=== PATIENT | male | born 1950 | race African-American/Black ===

== ENCOUNTER 2018-11-29 17:34 | Inpatient (IN) | payer OTHER, MEDICARE ==
[~2018-11-29] VITALS: Ht 165.1 cm; Wt 81.6 kg
[~2018-11-29 17:34] MED LIST: PIPERACILLIN/TAZO 3.375 GM in NS 50 ML IV SCH
[2018-11-29 17:35] VITALS: BP_SYST 104
--- NOTE | 2018-11-29 17:35 | NUR ---
Placed in room 4 . Placed on strategic business development, blood pressure machine and pulse oximeter. To gown for exam. Side rails up. Report given to Johnny.
--- NOTE | 2018-11-29 17:35 | NUR ---
Patient's pulse oximeter reading is 78% on room air, patient placed on oxygen mask at 10 lpm. Patient denies pain/sob
--- NOTE | 2018-11-29 17:40 | NUR ---
Pt presents to ER brought in by ALS for ALOC. Per pts , pts last known well time was yesterday. Otherwise, patient denies fever, chills, nausea, vomiting, diarrhea, chest pain, abdominal pain or any other complaints.
--- NOTE | 2018-11-29 17:50 | NUR ---
ER at bedside examining patient.
--- NOTE | 2018-11-29 18:47 | NUR ---
Laboratory at bedside.
[2018-11-29 19:18] LABS: HEMATOCRIT 46.7 % (36-54); MEAN CORPUSCULAR HEMOGLOBIN 33 pg (27-31); MEAN CORPUSCULAR HGB CONC 34 % (32-36); MEAN CORPUSCULAR VOLUME 97 fL (79.0-98.0); RED BLOOD CELL COUNT(AUTO) 4.84 MIL/uL (4.2-6.2); RED CELL DISTRIBUTION WIDTH 15.1 % (9.0-15.0); WHITE BLOOD COUNT (AUTO) 5.8 K/uL (4.8-10.8)
[2018-11-29 19:24] LABS: CALCIUM 9.1 mg/dL (8.4-11.0); CREATININE 0.86 mg/dL (0.55-1.30); POTASSIUM 3.8 mmol/L (3.5-5.1)
[2018-11-29 19:26] LABS: INR 1.2 (0.80-1.20); PROTHROMBIN TIME 12.7 SECS (9.5-12.5)
[2018-11-29 19:29] LABS: ALBUMIN 2.7 g/dL (3.4-4.8); TOTAL BILIRUBIN 1.9 mg/dL (0.0-1.0)
[2018-11-29 19:32] LABS: PLATELET COUNT (AUTO) 43 K/uL (130-430)
--- NOTE | 2018-11-29 19:35 | NUR ---
Dr. Lynch at bedside speaking with pt and pt's family.
[2018-11-29 19:49] LABS: BAND % (MANUAL) 8 % (0-6)
[2018-11-29 19:50] LABS: ATYPICAL LYMPHOCYTES % 0 % (0-0); BASOPHILS % (MANUAL) 0 % (0-2); EOSINOPHILS % (MANUAL) 0 % (0-7); LYMPHOCYTES % (MANUAL) 25 % (20-46); METAMYELOCYTES % 2 % (0-0); MONOCYTES % (MANUAL) 6 % (0-11); MYELOCYTES % 1 % (0-0)
[2018-11-29] MEDS ORDERED: DEPAK250 PO (19:51)
[2018-11-29] MEDS ORDERED: FURO-150 PO (19:51)
[2018-11-29] MEDS ORDERED: LACT10SO6 PO (19:51)
[2018-11-29] MEDS ORDERED: SIMV20TA2 PO (19:51)
[2018-11-29] MEDS ORDERED: TAMS0.4C96 PO (19:51)
[2018-11-29] MEDS ORDERED: PRED20TA PO (19:51)
[2018-11-29] MEDS ORDERED: HYDR-3917 PO (19:51)
[2018-11-29] MEDS ORDERED: PRO40 PO (19:51)
--- NOTE | 2018-11-29 19:59 | NUR ---
Pt is resting in bed, no acute distress noted at this time. Pt placed on urinal prior to catheterization at pt's wifes request.
[2018-11-29] MEDS ORDERED: PIPERACILLIN/TAZO 3.375 GM in NS 50 ML IV ONE (20:45)
--- NOTE | 2018-11-29 20:59 | NUR ---
Pt is resting in bed, no acute distress noted at this time. Will continue to monitor.
[2018-11-29] MEDS ORDERED: NACL 0.9% 3,000 ML IV ONE (21:00)
--- NOTE | 2018-11-29 21:00 | NUR ---
Pt placed on NRB @ 12LPM ER Dr. Lynch ordered.
[2018-11-29] MEDS ORDERED: PIPERACILLIN/TAZOBACTAM 3.375 GM/VIAL (ZOSYN) IV ONE (21:01)
--- NOTE | 2018-11-29 21:02 | NUR ---
IV Fluids was administered at 2102. IV site is a 22G on the RT wrist. IV is positional and fluids were ran at 250ml/hr per ER MD ordered. Will continue to monitor.
[2018-11-29 21:54] LABS: BILIRUBIN,URINE 1+ (NEGATIVE); BLOOD, URINE 3+ (NEGATIVE); CLARITY/URINE CLOUDY (CLEAR); COLOR,URINE AMBER (YELLOW); GLUCOSE,URINE NEGATIVE (NEGATIVE); KETONES,URINE TRACE (NEGATIVE); LEUKOCYTE ESTERASE ,URINE NEGATIVE (NEGATIVE); NITRITE, URINE NEGATIVE (NEGATIVE); PH,URINE 7.5 (5.0-8.0); PROTEIN URINE TRACE (NEGATIVE)
[2018-11-29 21:55] LABS: UROBILINOGEN,URINE >=8 (0.2-1.0)
[2018-11-29] MEDS ORDERED: POTASSIUM CHLORIDE 20 MEQ TAB.PRT.SR PO PRN (22:00)
[2018-11-29] MEDS ORDERED: MUPIROCIN 2% TOPICAL OINTMENT 22 GM NS PRN (22:00)
[2018-11-29] MEDS ORDERED: ACETAMINOPHEN 325 MG TABLET PO PRN (22:00)
[2018-11-29] MEDS ORDERED: DOCUSATE SODIUM 100 MG CAPSULE PO PRN (22:00)
[2018-11-29] MEDS ORDERED: ZOLPIDEM TARTRATE 5 MG TABLET PO PRN (22:00)
[2018-11-29] MEDS ORDERED: MORPHINE 4 MG/ML INJ. SYRINGE IVP PRN ×2 (22:00)
[2018-11-29] MEDS ORDERED: LORazepam 2 MG/ML VIAL IVP PRN (22:00)
[2018-11-29] MEDS ORDERED: ONDANSETRON HCL 4 MG/2 ML VIAL IVP PRN (22:00)
[2018-11-29 22:06] LABS: BACTERIA,URINE FEW /HPF (None Seen); CALCIUM OXALATE CRYSTALS,UR 0-10 /HPF (None Seen); MUCUS,URINE None Seen /LPF (None Seen); RBC,URINE >100 /HPF (0-3); URINE AMORPHOUS PHOSPHATES 3+ /HPF (None Seen); WBC,URINE 0-3 /HPF (0-3)
--- NOTE | 2018-11-29 22:20 | NUR ---
ICU called the ER notifying pharmacy operations specialist nurse has arrived and is ready to recieve the patient.
[2018-11-29 22:30] VITALS: BP_SYST 154
[2018-11-29] MEDS ORDERED: MAGNESIUM SULFATE 50 ML IV PRN (22:30)
--- NOTE | 2018-11-29 22:30 | NUR ---
Pt is ready to transfer patient only recieved 300 mls at this time. IV is position and is the reason for the discrepancy. Pt's vital signs are stable, lactic acid is less than 4 at this time. ICU charge and primary nurse has been notified.
--- NOTE | 2018-11-29 22:30 | NUR ---
ADMISSION Received pt from ED to ICU bed 7 w/ RN. Report received from Daryl NICHOLS using SBAR format. No signs of acute distress or discomfort noted at this time. Pt was accompanied by his . Upon arrival to room, pt hooked up to monitor and O2. Pt on non-rebreather mask w/ 12L O2, satting well @ 99%. Other VSS at this time. Pt has a right wrist IV 22g infusing NS at this time. Lung sounds clear bilateral anterior upper lobes. Received pt history from and pt at beside. Bed is locked and in lowest position, call light w/in reach, will continue to monitor. Addendum: 11/30/18 at 0047 by Tal Skaggs RN CHG bath given to pt at this time. Pt tolerated well.
--- NOTE | 2018-11-29 22:30 | NUR ---
Patient will be admitted to care of Dr. Harley . Admitted to ICU unit. Will go to room ICU 7. Summary report printed. Report will be given at bedside.
--- NOTE | 2018-11-29 22:40 | NUR ---
Jeannette post in ED - 11/30/18 at 0352 by [email or web address] ICU called the ER notifying environmental protection inspector nurse has arrived and is ready to recieve the patient.
[2018-11-29 22:44] VITALS: BP_SYST 115
--- NOTE | 2018-11-29 22:50 | NUR ---
Note sincere in ED - 11/30/18 at 0350 by [email or web address] Pt is ready to transfer patient only recieved 300mls at this time. IV is position and is the reason for the discrepancy. Pt's vital signs are stable, lactic acid is less than 4 at this time. ICU charge and primary nurse has been notified.
--- NOTE | 2018-11-29 22:55 | NUR ---
Note sincere in ED - 11/30/18 at 0351 by [email or web address] Patient will be admitted to care of . Admitted to ICU unit. Will go to room ICU 7. Summary report printed. Report will be given at bedside.
[2018-11-29 23:00] VITALS: BP_SYST 115
--- NOTE | 2018-11-29 23:00 | NUR ---
RT CHANGE Pt O2 changed from non-rebreather to oximizer 8L per RT. Pt tolerating well w/ O2 sats @ 99%. Will continue to monitor.
[2018-11-29] MEDS: IPRATROPIUM/ALBUTEROL SULFATE 3 ML AMPUL.NEB (DUONEB) INH SCH (23:01)
--- NOTE | 2018-11-29 23:25 | NUR ---
CONSULT CALLED @23:17 SPOKE WITH DONNA CARLSON IS AWARE OF THE CONSULT
[2018-11-29] MEDS ORDERED: AZITHROMYCIN 500 MG in NS 250 ML IV ONE (23:30)
[2018-11-29] MEDS ORDERED: COMMUNICATION ORDER XX ONE (23:30)
[2018-11-29 23:36] VITALS: BP_SYST 115
--- NOTE | 2018-11-29 23:50 | NUR ---
Iqbal Catheter insertion per MD order. Pt tolerated well. Iqbal Cath draining yellow urine to gravity. Will continue to monitor.
[2018-11-30] VITALS (14 sets, daily range): BP systolic 106–127
[2018-11-30] MEDS ORDERED: PIPERACILLIN/TAZOBACTAM 3.375 GM/VIAL (ZOSYN) IV ONE (00:28)
[2018-11-30] MEDS ORDERED: AZITHROMYCIN 500 MG/VIAL (ZITHROMAX) IV ONE (00:28)
--- NOTE | 2018-11-30 01:20 | NUR ---
RN ROUNDS Pt in bed w/ eyes closed resting comfortably, w/ family at bedside. No signs of acute distress or discomfort noted. VSS w/ SR seen on the monitor. Pt still on Oximizer 8L, tolerating well w/ O2 sats @ 95% and even and unlabored breathing. Pt receiving NS fluid at this time. Iqbal cath noted draining urine to gravity. Bed is locked and in lowest position, call light w/in reach. Will continue to monitor.
[2018-11-30] MEDS: NACL 0.9% 1,000 ML IV SCH ×2 (01:32→11:12)
[2018-11-30] MEDS: PIPERACILLIN/TAZO 3.375 GM in NS 50 ML IV SCH ×3 (02:53→15:42)
[2018-11-30] MEDS: IPRATROPIUM/ALBUTEROL SULFATE 3 ML AMPUL.NEB (DUONEB) INH SCH ×4 (03:46→14:00)
--- NOTE | 2018-11-30 03:50 | NUR ---
RN ROUNDS Pt in bed w/ eyes open resting comfortably. Pt's family still at bedside. RT at bedside giving pt breathing tx. Pt tolerating tx well w/ O2 sats @ 98%. No signs of acute distress or discomfort noted. VSS w/ SR seen on the monitor. Iqbal cath draining urine to gravity. Pt doesn't verbalize needs at this time. Bilateral SCD's noted to pt's lower extremities. Bed is locked and in lowest position, call light w/in reach, padded side rails, will continue to monitor.
--- NOTE | 2018-11-30 04:05 | NUR ---
RT CHANGE Pt's O2 changed from Oximizer 8L to Oximizer 6L per RT. Pt tolerating well w/ O@ sats @ 93% and even and unlabored breathing. Will continue to monitor pt.
[2018-11-30 07:04] LABS: BASOPHILS % (AUTO) 0.6 % (0.0-2.0); EOSINOPHILS % (AUTO) 0.2 % (0.0-4.0); HEMATOCRIT 39.9 % (36-54); HEMOGLOBIN 13.2 g/dL (14.0-18.0); LYMPHOCYTES # (AUTO) 0.7 K/uL (1.0-5.5); LYMPHOCYTES % (AUTO) 19.4 % (20.5-51.5); MEAN CORPUSCULAR HEMOGLOBIN 32 pg (27-31); MEAN CORPUSCULAR HGB CONC 33 % (32-36); MEAN CORPUSCULAR VOLUME 97 fL (79.0-98.0); MONOCYTES # (AUTO) 0.5 K/uL (0.0-1.0); MONOCYTES % (AUTO) 12.8 % (1.7-9.3); NEUTROPHILS # (AUTO) 2.5 K/uL (1.8-7.7); RED BLOOD CELL COUNT(AUTO) 4.13 MIL/uL (4.2-6.2); RED CELL DISTRIBUTION WIDTH 15.1 % (9.0-15.0); WHITE BLOOD COUNT (AUTO) 3.7 K/uL (4.8-10.8)
--- NOTE | 2018-11-30 07:10 | NUR ---
ENDORSEMENT Report given to Charleen NICHOLS using SBAR format and pt care endorsed. Pt in bed w/ eyes closed, no signs of acute distress or discomfort noted. Pt's son at bedside. VSS w/ SR seen on the monitor. Pt doesn't verbalize any needs as this time. Bed is locked and in lowest position and call light w/in reach.
--- NOTE | 2018-11-30 07:15 | NUR ---
OPENING NOTE: RECEIVED REPORT FROM NIGHT NURSE. PATIENT IS RESTING COMFORTABLY IN BED. NO S/S OF DISTRESS OR SOB. PATIENT IS ASLEEP, WAKES WHEN SPOKEN TO. SON AT BEDSIDE. IV IS PATENT AND INFUSING NORMAL SALINE @70 CC/HR. SCD'S IN PLACE. PATIENT ON 6 L OXYMIZER. ENRIQUE DRAINING TO GRAVITY. CALL LIGHT IN REACH, BED IN LOWEST POSITION, AND WILL CONTINUE TO MONITOR.
[2018-11-30 07:18] LABS: POTASSIUM 4.1 mmol/L (3.5-5.1)
[2018-11-30 07:19] LABS: CALCIUM 7.7 mg/dL (8.4-11.0); CREATININE 0.71 mg/dL (0.55-1.30)
[2018-11-30 07:47] LABS: PLATELET COUNT (AUTO) 22 K/uL (130-430)
--- NOTE | 2018-11-30 08:06 | NUR ---
Paged Dr. Brown for new consult, spoke with dipak Lopez. Waiting for call back.
--- NOTE | 2018-11-30 08:06 | NUR ---
DR. FLORENTINO PAGED TO REPORT LOW PLATELET COUNT. ORDERS RECEIVED.
[2018-11-30] MEDS ORDERED: VALPROIC ACID 250 MG CAPSULE (DEPAKENE) PO SCH (09:00)
[2018-11-30] MEDS ORDERED: TAMSULOSIN HCL 0.4 MG CAP PO SCH (09:00)
[2018-11-30] MEDS ORDERED: methylPREDNISolone SOD SUCC 40 MG/ML VIAL IVP ONE (09:45)
[2018-11-30] MEDS ORDERED: traMADol HCL HCL 50 MG TABLET (ULTRAM) PO PRN (10:00)
--- NOTE | 2018-11-30 10:00 | NUR ---
Nutrition Update Lloyd Scale 15 noted. Pt admitted for acute respiratory failure. Diet: regular BMI: 30 kg/m2 RD to follow per nutrition care standards.
--- NOTE | 2018-11-30 10:01 | NUR ---
New consult paged to Dr. Arellano, spoke with exchange. Waiting for call back.
[2018-11-30 10:06] LABS: INR 1.2 (0.80-1.20); PROTHROMBIN TIME 12.7 SECS (9.5-12.5)
--- NOTE | 2018-11-30 10:33 | NUR ---
Telemetry status patient transferred to telemetry status.
--- NOTE | 2018-11-30 10:34 | NUR ---
Discharge Planning: DCP completed pt chart, ordered radiology CD and to packet to nurses station.
--- NOTE | 2018-11-30 10:39 | NUR ---
DC PLANNING Order stable to transfer to contracted hospital. Spoke w pt, son Jose @ bedside, & Rosa on speaker phone. Agreeable w transfer to contracted hospital w [facility]transfer order to [facility], fax [phone], ph [phone]. Called [facility], order received, assigned Grulla CM is msg Leigh left order stable to transfer & pt/family preference. Pt's nurse in ICU aware.
--- NOTE | 2018-11-30 12:30 | NUR ---
Platelet Transfer Refusal Rosa Payne, , at [facility] gave consent for the platelet transfer. Shortly after, called back and said that she was still not sure and to put the transfer on hold until she had done more research. Blood bank made aware.
--- NOTE | 2018-11-30 12:51 | NUR ---
Pt transfered to [facility] floor, bed 112B. Report given to Nayan NICHOLS. Patient transferred in stable condition.
--- NOTE | 2018-11-30 13:00 | NUR ---
Patient received, lethargic. On O2 6L oximizer, satting at mid 90s%. ST on monitor. VSS stable. Son, Diallo, at bedside. POC explained, call light in place, bed locked at the lowest position, will continue to monitor.
--- NOTE | 2018-11-30 13:07 | NUR ---
Dr. Brown is called about platelets of 22, and if it is safe to have a PICC line inserted. Dr. Brown states it is still safe to insert a PICC despite platelets of 22. PICC line nurse is at bedside.
[2018-11-30] MEDS ORDERED: AZITHROMYCIN 500 MG in NS 250 ML IV SCH (13:45)
--- NOTE | 2018-11-30 13:50 | NUR ---
PICC nurse completed insertion of PICC line. No signs of distress noted.
--- NOTE | 2018-11-30 16:18 | NUR ---
cammy called for status update. V/S is reported.
[2018-11-30] MEDS ORDERED: methylPREDNISolone SOD SUCC 40 MG/ML VIAL IVP SCH (18:00)
[2018-11-30] MEDS ORDERED: SIMVASTATIN 20 MG TABLET PO SCH (18:00)
--- NOTE | 2018-11-30 18:47 | NUR ---
PT TRANSFERRED Report given to Tanya at [facility]. Transfer packet with Transfer Orders and Medication Reconciliation form given to EMT with report. Exitcare provided. [facility] ID band removed, replaced with ID band with pt's name and . All belongings sent with patient. Patient left floor via gurney escorted by EMT in no distress.
== END 2018-11-30 18:57 | disposition short-term general hospital (02) | DRG 871 ==
LOC: SED 17:34 → SIC 22:00 → STU 11-30 12:54
PROVIDERS: ADMIT General Practice; ATTEND General Practice
PROC: 30233R1 Transfusion of Nonautologous Platelets into Peripheral Vein, Percutaneous Approach (ICD-10-PCS; principal; 2018-11-30)
PROC: 02HV33Z Insertion of Infusion Device into Superior Vena Cava, Percutaneous Approach (ICD-10-PCS; 2018-11-30)
PROC: B548ZZA Ultrasonography of Superior Vena Cava, Guidance (ICD-10-PCS; 2018-11-30)
DX: A41.9 Sepsis, unspecified organism (principal); G93.41 Metabolic encephalopathy; J96.01 Acute respiratory failure with hypoxia; J69.0 Pneumonitis due to inhalation of food and vomit; E44.0 Moderate protein-calorie malnutrition; R65.20 Severe sepsis without septic shock; D69.6 Thrombocytopenia, unspecified; D86.89 Sarcoidosis of other sites; E11.9 Type 2 diabetes mellitus without complications; E78.5 Hyperlipidemia, unspecified; F12.90 Cannabis use, unspecified, uncomplicated; G40.909 Epilepsy, unspecified, not intractable, without status epilepticus; G93.89 Other specified disorders of brain; K21.9 Gastro-esophageal reflux disease without esophagitis; K70.30 Alcoholic cirrhosis of liver without ascites; N40.0 Benign prostatic hyperplasia without lower urinary tract symptoms; I50.9 Heart failure, unspecified; Z79.52 Long term (current) use of systemic steroids; Z99.3 Dependence on wheelchair; Z74.01 Bed confinement status; Z88.5 Allergy status to narcotic agent; Z79.899 Other long term (current) drug therapy; Z68.30 Body mass index [BMI] 30.0-30.9, adult
CPT/HCPCS: 36415; 36600; 70450-TC; 71045; 71250-TC; 76700-TC; 80048; 80053; 81000-TC; 82140-TC; 82803-TC; 83036; 83605; 83615-TC; 83735-TC; 83880; 84484; 85007; 85025; 85027; 85610-TC; 85730-TC; 86710; 86738; 86900; 86901; 87040-TC; 87081; 87086; 87186-TC; 93005; 94640; 96360; 96372; 99285; C1751; J0456; J1030; J2543; J3475; J7030; J7050; J7620